=== PATIENT | male | born 1985 | race Caucasian/White ===

== ENCOUNTER 2021-10-18 23:14 | Observation (INO) | payer SELFPAY ==
[~2021-10-18] VITALS: Ht 175.3 cm; Wt 68.0 kg
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
[2021-10-18] MEDS: LACTATED RINGERS 1,000 ML IV SCH (23:44)
[2021-10-18] MEDS ORDERED: ONDANSETRON 4 MG/2 ML (SDV) Z0FRAN IVP ONE (23:45)
[2021-10-19 00:09] LABS: POTASSIUM 5.3 MMOL/L (3.6-5.0)
[2021-10-19 00:10] LABS: CALCIUM 11.3 MG/DL (8.5-10.1)
[2021-10-19 00:14] LABS: CREATININE SERUM 3.38 MG/DL (0.60-1.30)
[2021-10-19 00:41] LABS: BASOPHILS # (AUTO) 0.1 10^3/uL (0.0-0.1); BASOPHILS % (AUTO) 1 % (0-10); EOSINOPHILS # (AUTO) 0.1 10^3/uL (0.0-0.3); EOSINOPHILS % (AUTO) 0 % (0-10); HEMATOCRIT 55 % (40-54); HEMOGLOBIN 18.8 g/dL (13.3-17.7); LYMPHOCYTES # (AUTO) 3.2 10^3/uL (1.0-4.0); LYMPHOCYTES % (AUTO) 18 % (12-44); MEAN CORPUSCULAR HEMOGLOBIN 29 pg (25-34); MEAN CORPUSCULAR HGB CONC 34 g/dL (32-36); MEAN CORPUSCULAR VOLUME 83 fL (80-99); MEAN PLATELET VOLUME 9.2 fL (9.0-12.2); MONOCYTES # (AUTO) 1.5 10^3/uL (0.0-1.0); MONOCYTES % (AUTO) 8 % (0-12); NEUTROPHILS # (AUTO) 13.2 10^3/uL (1.8-7.8); NEUTROPHILS % (AUTO) 73 % (42-75); PLATELET COUNT 464 10^3/uL (130-400); WHITE BLOOD COUNT 18.2 10^3/uL (4.3-11.0)
[2021-10-19] MEDS ORDERED: LACTATED RINGERS 1,000 ML IV SCH (00:45)
[2021-10-19] MEDS ORDERED: NS IV 1000 ML 1,000 ML IV SCH (01:00)
[2021-10-19] MEDS: LACTATED RINGERS 1,000 ML IV SCH (01:05)
[2021-10-19 01:21] LABS: CLARITY,URINE CLEAR; COLOR,URINE YELLOW; GLUCOSE, URINE (UA) NEGATIVE (NEGATIVE); KETONES,URINE NEGATIVE (NEGATIVE); LEUKOCYTE ESTERASE ,URINE NEGATIVE (NEGATIVE); NITRITE,URINE NEGATIVE (NEGATIVE); PROTEIN,URINE 2+ (NEGATIVE)
[2021-10-19 01:40] LABS: BACTERIA,URINE NEGATIVE /HPF; BILIRUBIN,URINE 1+ (NEGATIVE); CALCIUM OXALATE CRYSTALS,UR RARE /LPF
[2021-10-19 01:41] LABS: BAND NEUTROPHILS 3 %; LYMPHOCYTES % (MANUAL) 17 %; MONOCYTES % (MANUAL) 6 %; NEUTROPHILS % (MANUAL) 74 %; RBC MORPH NORMAL
[2021-10-19 01:47] LABS: AMPHETAMINE SCREEN, URINE POSITIVE (NEGATIVE); BARBITURATE SCREEN URINE NEGATIVE (NEGATIVE); BENZODIAZEPINES SCREEN URINE NEGATIVE (NEGATIVE); CANNABINOID SCREEN, URINE NEGATIVE (NEGATIVE); COCAINE SCREEN URINE NEGATIVE (NEGATIVE); METHADONE STAT NEGATIVE (NEGATIVE); OPIATE SCREEN URINE NEGATIVE (NEGATIVE); OXYCODONE STAT NEGATIVE (NEGATIVE); PROPOXYPHENE STAT NEGATIVE (NEGATIVE); TRICYCLIC ANTIDEPRESSANTS SCRE NEGATIVE (NEGATIVE)
[2021-10-19 01:55] VITALS: BP 132/90
[2021-10-19] MEDS ORDERED: diphenhydrAMINE 25 MG TAB (BENADRYL) PO PRN (02:00)
[2021-10-19] MEDS ORDERED: ONDANSETRON 4 MG/2 ML (SDV) Z0FRAN IV PRN (02:00)
[2021-10-19] MEDS ORDERED: ACETAMINOPHEN 500 MG TAB (TYLENOL) PO PRN (02:00)
[2021-10-19] MEDS: NS IV 1000 ML 1,000 ML IV SCH ×2 (02:15→10:06)
[2021-10-19 02:30] VITALS: BP 103/85
[2021-10-19 03:31] VITALS: BP 126/81
[2021-10-19 06:19] LABS: BASOPHILS # (AUTO) 0.1 10^3/uL (0.0-0.1); BASOPHILS % (AUTO) 1 % (0-10); EOSINOPHILS % (AUTO) 0 % (0-10); HEMATOCRIT 48 % (40-54); HEMOGLOBIN 15.6 g/dL (13.3-17.7); LYMPHOCYTES # (AUTO) 2.8 10^3/uL (1.0-4.0); LYMPHOCYTES % (AUTO) 22 % (12-44); MEAN CORPUSCULAR HEMOGLOBIN 29 pg (25-34); MEAN CORPUSCULAR HGB CONC 33 g/dL (32-36); MEAN CORPUSCULAR VOLUME 87 fL (80-99); MONOCYTES # (AUTO) 0.9 10^3/uL (0.0-1.0); MONOCYTES % (AUTO) 7 % (0-12); NEUTROPHILS # (AUTO) 8.8 10^3/uL (1.8-7.8); NEUTROPHILS % (AUTO) 70 % (42-75); PLATELET COUNT 295 10^3/uL (130-400); WHITE BLOOD COUNT 12.7 10^3/uL (4.3-11.0)
[2021-10-19 06:27] LABS: ALBUMIN 4.3 GM/DL (3.2-4.5); POTASSIUM 4.6 MMOL/L (3.6-5.0)
[2021-10-19 06:28] LABS: CALCIUM 9.5 MG/DL (8.5-10.1)
[2021-10-19 06:29] LABS: TOTAL PROTEIN 6.9 GM/DL (6.4-8.2)
[2021-10-19 06:31] LABS: BILIRUBIN,TOTAL 0.6 MG/DL (0.1-1.0)
[2021-10-19 06:33] LABS: CREATININE SERUM 1.76 MG/DL (0.60-1.30)
[2021-10-19 08:04] VITALS: BP 112/69
[2021-10-19 11:23] VITALS: BP 111/71
[2021-10-19 13:00] VITALS: BP 111/71
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
== END 2021-10-19 11:09 | disposition home or self-care (01) ==
LOC: ER 23:19 → 4TH 23:20 → INTOOBSV 10-19 00:55 → UNDOADMOB 10-19 00:55 → EDLOC 10-19 00:55 → 4TH 10-19 00:55 → UNDODISOB 10-19 13:33
PROVIDERS: ADMIT Internal Medicine; ATTEND Internal Medicine
DX: N17.9 Acute kidney failure, unspecified (principal); M62.82 Rhabdomyolysis; E86.0 Dehydration; F15.129 Other stimulant abuse with intoxication, unspecified; E87.5 Hyperkalemia
CPT/HCPCS: 80048; 80053; 80306; 81000; 82550 ×2; 85007; 85025; 85027; 96361; 96374; 99284; G0378; 36415